=== PATIENT | female | born 1990 ===

== ENCOUNTER 2016-09-04 03:56 | Emergency (ER) | payer MEDICAID ==
[2016-09-04 04:28] VITALS: BP 126/88; PULSE 117; RESP 18; TEMP 97.9; O2SAT 100
[2016-09-04 04:53] LABS: BASO # 0.1 K/uL (0.0-0.2); BASO % 0.7 % (0.0-2.0); EOS % 0.1 % (0.0-4.0); LYMPH # 1.5 K/uL (1.0-4.3); LYMPH % 16.7 % (20.0-40.0); MEAN CELL VOLUME 89.4 fl (81.0-99.0); MEAN CORPUSCULAR HEMOGLOBIN 29.4 pg (27.0-31.0); MEAN CORPUSCULAR HGB CONC 32.9 g/dL (33.0-37.0); MEAN PLATELET VOLUME 8.3 fl (7.2-11.7); MONO # 0.5 K/uL (0.0-0.8); NEUT % 76.5 % (50.0-75.0); RED CELL DISTRIBUTION WIDTH 13.6 % (11.5-14.5); WHITE BLOOD COUNT 9.1 K/uL (4.8-10.8)
[2016-09-04 05:27] LABS: ALB/GLOB RATIO 1.6 (1.0-2.1); ALCOHOL SERUM 73 mg/dl (0-10); ALKALINE PHOSPHATASE 65 U/L (38-126); ALT/SGPT 31 U/L (9-52); AST/SGOT 28 U/L (14-36); BILIRUBIN,TOTAL 0.4 mg/dl (0.2-1.3); BLOOD UREA NITROGEN 9 mg/dl (7-17); CALCIUM 9.5 mg/dL (8.4-10.2); CARBON DIOXIDE 20 mmol/L (22-30); CHLORIDE 104 mmol/L (98-107); GFR AFRICAN-AMERICAN > 60; GLUCOSE,RANDOM 122 mg/dL (65-105); POTASSIUM 3.9 MMOL/L (3.6-5.0); SODIUM 138 mmol/l (132-148); TOTAL PROTEIN 7.7 G/DL (6.3-8.2)
--- NOTE | 2016-09-04 05:35 | ED PDOC ---
HPI: Psych/Substance Abuse Time Seen by Provider: 09/04/16 04:09 Chief Complaint (Nursing): Psychiatric Evaluation Chief Complaint (Provider): Psychiatric Evaluation History Per: Patient History/Exam Limitations: no limitations Onset/Duration Of Symptoms: Hrs (a few hours prior to arrival) Additional Complaint(s): 4:09 Nick Babb, 26 year old female presents to the ED on 09/04/16. The patient has a past medical history of depression and anxiety. She reports that she has been feeling increasingly depressed for the past few days. The patient is prescribed Prozac, but was unable to take this medication for a week due to issues with her prescription. She reports taking this medication for the past 3 days. The patient admits to alcohol use this evening and called EMS due to having suicidal thoughts. The patient denies any suicidal thoughts upon admission, but reports feeling "closed". She denies any auditory or visual hallucination. Of note, the patient has no additional medical complaints. Past Medical History Reviewed: Historical Data, Nursing Documentation, Vital Signs Vital Signs: Last Vital Signs Temp 97.9 F 09/04/16 04:04 Pulse 117 H 09/04/16 04:04 Resp 18 09/04/16 04:04 BP 126/88 09/04/16 04:04 Pulse Ox 100 09/04/16 04:04 - Medical History PMH: Anxiety, Depression - Surgical History Surgical History: No Surg Hx - Family History Family History: States: Unknown Family Hx - Social History Current smoker - smoking cessation education provided: No Alcohol: Occasional Drugs: Denies - Allergies Allergies/Adverse Reactions: Allergies Allergy/AdvReac Type Severity Reaction Status Date / Time No Known Allergies Allergy Verified 09/04/16 04:04 Review of Systems ROS Statement: Except As Marked, All Systems Reviewed And Found Negative Psych: Positive for: Anxiety, Depression, Suicidal ideation. Negative for: Other (no visual or auditory hallucinations ) Physical Exam - Reviewed Nursing Documentation Reviewed: Yes Vital Signs Reviewed: Yes - Physical Exam Appears: Positive for: Non-toxic, No Acute Distress Head Exam: Positive for: ATRAUMATIC, NORMOCEPHALIC Skin: Positive for: Normal Color, Warm, Dry Eye Exam: Positive for: Normal appearance ENT: Positive for: Normal ENT Inspection Neck: Positive for: Normal, Painless ROM Cardiovascular/Chest: Positive for: Regular Rate, Rhythm, Chest Non Tender Respiratory: Positive for: Normal Breath Sounds. Negative for: Respiratory Distress Gastrointestinal/Abdominal: Positive for: Normal Exam, Soft. Negative for: Tenderness Back: Positive for: Normal Inspection Extremity: Positive for: Normal ROM. Negative for: Deformity Neurologic/Psych: Positive for: Alert, Oriented (x3) - Laboratory Results Result Diagrams: 09/04/16 04:46 09/04/16 04:46 - ECG O2 Sat by Pulse Oximetry: 100 (RA) Pulse Ox Interpretation: Normal Medical Decision Making Medical Decision Makin:09 Initial Impression: 26 year old female with suicidal ideations on alcohol use and known depression. Initial Plan: * Alcohol Serum Stat * CMP Stat * Drug Screen, Urine Stat * Urine (POC) Stat * ED Urine Dipstick (POC) Stat * CBC (With Differential) Stat * Urinalysis Stat * Crisis Evaluation As Ordered 5:56 Evaluation completed by Crisis. Patient is to be discharged home. Diagnosis: Alcohol Induced Mood Disorder Condition: Stable Scribe Attestation: Documented by Mary Laws, acting as a scribe for Tyrel Romero MD. Provider Scribe Attestation: All medical record entries made by the Scribe were at my direction and personally dictated by me. I have reviewed the chart and agree that the record accurately reflects my personal performance of the history, physical exam, medical decision making, and the department course for this patient. I have also personally directed, reviewed, and agree with the discharge instructions and disposition. ED OBSERVATION Date of observation admission: 09/04/16 Time of observation admission: 04:09 - Observation admission statement Patient is being placed in observation because:: Time-extensive ED evaluation. - Goals of Observation Goals of observation are:: Results of ED workup, crisis evaluation, and eventual disposition. Disposition - Clinical Impression Clinical Impression: Alcohol-induced mood disorder - Disposition Disposition Time: 05:56 Condition: STABLE Instructions: Depression (ED)
== END 2016-09-04 06:02 | disposition home or self-care (01) ==
LOC: H.ER 03:56
DX: F10.94 Alcohol use, unspecified with alcohol-induced mood disorder (principal); F32.9 Major depressive disorder, single episode, unspecified; F41.9 Anxiety disorder, unspecified; R45.851 Suicidal ideations